=== PATIENT | male | born 1970 | race African-American/Black ===

== ENCOUNTER 2016-10-03 13:37 | Inpatient (IN) | payer SELFPAY ==
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
[2016-10-03 14:09] LABS: ABSOLUTE BASOPHILS # (AUTO) 0.1 10^3/uL (0.0-0.2); ABSOLUTE EOSINOPHILS # (AUTO) 0.1 10^3/uL (0.0-0.6); ABSOLUTE LYMPHOCYTES (AUTO) 2.1 10^3/uL (0.5-4.7); ABSOLUTE MONOCYTES (AUTO) 1.1 10^3/uL (0.1-1.4); ABSOLUTE NEUT (AUTO) 13.4 10^3/uL (1.7-8.2); BASOPHILS % (AUTO) 0.7 % (0-2); EOSINOPHILS % (AUTO) 0.5 % (0-6); HEMATOCRIT 41.8 % (37.9-51.0); HEMOGLOBIN 14.5 g/dL (13.5-17.0); HGB HCT DIFFERENCE 1.7; LYMPHOCYTES % (AUTO) 12.4 % (13-45); MEAN CORPUSCULAR HEMOGLOBIN 30.9 pg (27.0-33.4); MEAN CORPUSCULAR HGB CONC 34.8 g/dL (32.0-36.0); MEAN CORPUSCULAR VOLUME 89 fl (80-97); MONOCYTES % (AUTO) 6.8 % (3-13); RED BLOOD COUNT 4.71 10^6/uL (4.35-5.55); RED CELL DISTRIBUTION WIDTH 12.6 % (11.5-14.0); SEGMENTED NEUTROPHILS % (AUTO) 79.6 % (42-78); WHITE BLOOD COUNT 16.8 10^3/uL (4.0-10.5)
[2016-10-03 14:15] LABS: APPEARANCE,URINE CLEAR; BILIRUBIN,URINE NEGATIVE (NEGATIVE); GLUCOSE, URINE NEGATIVE (NEGATIVE); KETONES,URINE NEGATIVE (NEGATIVE); LEUKOCYTE ESTERASE,URINE NEGATIVE (NEGATIVE); NITRITE,URINE NEGATIVE (NEGATIVE); PROTEIN,URINE 30 mg/dL (NEGATIVE); URINE SPECIFIC GRAVITY 1.014
[2016-10-03 14:26] LABS: ALANINE AMINOTRANSFERASE 29 U/L (21-72); ALBUMIN 4.2 g/dL (3.5-5.0); ALKALINE PHOSPHATASE 61 U/L (38-126); ANION GAP 12 (5-19); ASPARTATE AMINO TRANSFERASE 20 U/L (17-59); BILIRUBIN,DIRECT 0.1 mg/dL (0.0-0.4); BILIRUBIN,TOTAL 1.4 mg/dL (0.2-1.3); BLOOD UREA NITROGEN 10 mg/dL (7-20); CALCIUM 9.6 mg/dL (8.4-10.2); CARBON DIOXIDE 30 mmol/L (22-30); CHLORIDE 100 mmol/L (98-107); CREATININE RESULT 1.11 mg/dL (0.52-1.25); GLUCOSE 128 mg/dL (75-110); LIPASE 65.6 U/L (23-300); POTASSIUM 3.7 mmol/L (3.6-5.0); SODIUM 141.5 mmol/L (137-145); TOTAL PROTEIN 7.3 g/dL (6.3-8.2)
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
[2016-10-03] MEDS ORDERED: LEVOFLOXACIN RTU 750 MG/D5W 150 ML IV ONE (15:40)
[2016-10-03] MEDS ORDERED: METRONIDAZOLE RTU 500 MG/NS 100 ML IV ONE (15:40)
[2016-10-03] MEDS ORDERED: NORMAL SALINE 1000 ML 1,000 ML IV ONE (15:42)
[2016-10-03] MEDS ORDERED: HYDROMORPHONE HCL INJ/PF 2 MG/ML AMPULE IV ONE (15:43)
[2016-10-03] MEDS ORDERED: ONDANSETRON HCL INJ/PF 4 MG/2 ML SDV IV ONE (15:43)
[2016-10-03] MEDS ORDERED: PIPERACILLIN/TAZOBACTAM 4.5 GM VIAL IV ONE (19:26)
[2016-10-03] MEDS ORDERED: POTASSI CL 20 MEQ/D5-1/2NS 1L 1,000 ML IV ONE (22:33)
[2016-10-03] MEDS ORDERED: ONDANSETRON HCL INJ/PF 4 MG/2 ML SDV IV PRN (22:41)
[2016-10-03] MEDS ORDERED: PIPERACILLIN/TAZOBACTAM 3.375 GM VIAL IV PRN (22:45)
[2016-10-03] MEDS: HYDROMORPHONE HCL INJ/PF 2 MG/ML AMPULE IV PRN (22:57)
[2016-10-03] MEDS: POTASSI CL 20 MEQ/D5-1/2NS 1L 1000 ML IV PRN (22:58)
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
[2016-10-04] MEDS ORDERED: PIPERACILLIN/TAZOBACTAM 3.375 GM VIAL IV ONE (02:36)
[2016-10-04] MEDS: PIPERACILLIN SODIUM/TAZOBACTAM 3.375 GM in NORMAL SALINE 100 ML IV SCH ×3 (04:27→18:35)
[2016-10-04 05:11] LABS: ABSOLUTE BASOPHILS # (AUTO) 0.1 10^3/uL (0.0-0.2); ABSOLUTE EOSINOPHILS # (AUTO) 0.2 10^3/uL (0.0-0.6); ABSOLUTE LYMPHOCYTES (AUTO) 2.1 10^3/uL (0.5-4.7); ABSOLUTE MONOCYTES (AUTO) 1.2 10^3/uL (0.1-1.4); ABSOLUTE NEUT (AUTO) 10.3 10^3/uL (1.7-8.2); BASOPHILS % (AUTO) 0.5 % (0-2); EOSINOPHILS % (AUTO) 1.3 % (0-6); HEMATOCRIT 37.5 % (37.9-51.0); HEMOGLOBIN 12.8 g/dL (13.5-17.0); HGB HCT DIFFERENCE 0.9; LYMPHOCYTES % (AUTO) 15.1 % (13-45); MEAN CORPUSCULAR HEMOGLOBIN 30.2 pg (27.0-33.4); MEAN CORPUSCULAR HGB CONC 34.1 g/dL (32.0-36.0); MEAN CORPUSCULAR VOLUME 89 fl (80-97); MONOCYTES % (AUTO) 8.7 % (3-13); RED BLOOD COUNT 4.22 10^6/uL (4.35-5.55); RED CELL DISTRIBUTION WIDTH 12.4 % (11.5-14.0); SEGMENTED NEUTROPHILS % (AUTO) 74.4 % (42-78); WHITE BLOOD COUNT 13.9 10^3/uL (4.0-10.5)
[2016-10-04 05:40] LABS: ANION GAP 9 (5-19); BLOOD UREA NITROGEN 9 mg/dL (7-20); CALCIUM 8.7 mg/dL (8.4-10.2); CARBON DIOXIDE 25 mmol/L (22-30); CHLORIDE 103 mmol/L (98-107); CREATININE RESULT 0.97 mg/dL (0.52-1.25); GLUCOSE 105 mg/dL (75-110); POTASSIUM 3.6 mmol/L (3.6-5.0); SODIUM 137.1 mmol/L (137-145)
--- NOTE | 2016-10-04 06:36 | PDOC PROGRESS REPORT ---
Subjective Progress Note for:: 10/04/16 Subjective:: Feeling better less abdominal pain Physical Exam Vital Signs: Temp Pulse Resp BP Pulse Ox 98.1 F 73 18 117/69 95 10/04/16 02:50 10/04/16 02:50 10/04/16 02:50 10/04/16 02:50 10/04/16 02:50 Intake & Output 10/02/16 10/03/16 10/04/16 06:59 06:59 06:59 Intake Total 920 Balance 920 GI/Abdominal exam: PRESENT: other - Soft abdomen, less tender Results Laboratory Results: 10/04/16 05:00 10/04/16 05:00 10/04/16 10/04/16 05:00 05:00 WBC 13.9 H RBC 4.22 L Hgb 12.8 L Hct 37.5 L MCV 89 MCH 30.2 MCHC 34.1 RDW 12.4 Plt Count 209 Seg Neutrophils % 74.4 Lymphocytes % 15.1 Monocytes % 8.7 Eosinophils % 1.3 Basophils % 0.5 Absolute Neutrophils 10.3 H Absolute Lymphocytes 2.1 Absolute Monocytes 1.2 Absolute Eosinophils 0.2 Absolute Basophils 0.1 Sodium 137.1 Potassium 3.6 Chloride 103 Carbon Dioxide 25 Anion Gap 9 BUN 9 Creatinine 0.97 Est GFR ( Amer) > 60 Est GFR (Non-Af Amer) > 60 Glucose 105 Calcium 8.7 Impressions: Abdomen/Pelvis CT 10/03/16 15:42 IMPRESSION: Sigmoid diverticulitis with the appearance of extra luminal gas, consistent with small perforation. Assessment & Plan - Plan Summary Plan Summary: Conservative management with IV Zosyn Clinically improving well Continue IV antibiotics another 2 days, slowly Advance diet
[2016-10-04] MEDS: ENOXAPARIN SODIUM INJ 40 MG/0.4 ML DISP.SYRIN SUBCUT SCH (10:12)
[2016-10-04] MEDS: POTASSI CL 20 MEQ/D5-1/2NS 1L 1000 ML IV PRN (10:14)
[2016-10-04] MEDS: HYDROMORPHONE HCL INJ/PF 2 MG/ML AMPULE IV PRN ×3 (10:16→22:13)
--- NOTE | 2016-10-04 22:13 | PROGRESS NOTE E ---
Progress Note NAME: ALEKSANDRA CHUNG : 1970 AGE: 46Y DATE: 10/04/2016 ROOM: 209 SUBJECTIVE: Patient still reports left lower quadrant pain and has multiple bouts of watery stools. OBJECTIVE: VITALS SIGNS: Stable. Patient afebrile. Temperature is 97.5, pulse 68, blood pressure 110/74. I's and O's for the past 24 hours; intake 920, output not reported. LUNGS: Clear. HEART: Regular. ABDOMEN: Slight tenderness left lower quadrant. REVIEW OF LABS: White blood cell count 13.9, H and H 12 and 37. Electrolytes: Current within normal limits. ASSESSMENT: 1. ACUTE PERFORATED SIGMOID DIVERTICULITIS, TREATED CONSERVATIVELY. 2. PATIENT OVERALL DOING WELL, AFEBRILE WITHOUT TACHYCARDIA. 3. WHITE BLOOD CELL COUNT DECREASED SINCE YESTERDAY. 4. PATIENT STILL HAS LEFT LOWER QUADRANT ON PHYSICAL EXAM. PLAN: 1. Continue N.P.O. 2. Continue IV fluids and IV antibiotics. 3. Will monitor the patient's vital signs and blood work the next few days. 4. Once the white blood cell count becomes normal and the patient is asymptomatic, will plan to rescan the patient and eventually advance his diet if CT scan is negative for abscess formation. DICTATING PHYSICIAN: OLGA LIDIA GUILLORY M.D. [id number] [facility]#: [id number] ID: [id number] JOB#: [id number] ACCT: [id number] cc: > ERICD
[2016-10-05] MEDS: POTASSI CL 20 MEQ/D5-1/2NS 1L 1000 ML IV PRN ×2 (00:14→11:40)
[2016-10-05] MEDS: PIPERACILLIN SODIUM/TAZOBACTAM 3.375 GM in NORMAL SALINE 100 ML IV SCH ×3 (02:02→17:32)
[2016-10-05] MEDS: HYDROMORPHONE HCL INJ/PF 2 MG/ML AMPULE IV PRN ×3 (04:47→17:37)
[2016-10-05 07:22] LABS: ABSOLUTE BASOPHILS # (AUTO) 0.1 10^3/uL (0.0-0.2); ABSOLUTE EOSINOPHILS # (AUTO) 0.3 10^3/uL (0.0-0.6); ABSOLUTE LYMPHOCYTES (AUTO) 2.2 10^3/uL (0.5-4.7); ABSOLUTE MONOCYTES (AUTO) 0.8 10^3/uL (0.1-1.4); ABSOLUTE NEUT (AUTO) 6.7 10^3/uL (1.7-8.2); BASOPHILS % (AUTO) 0.6 % (0-2); EOSINOPHILS % (AUTO) 2.9 % (0-6); HEMATOCRIT 38.6 % (37.9-51.0); HEMOGLOBIN 13.2 g/dL (13.5-17.0); MEAN CORPUSCULAR HEMOGLOBIN 30.2 pg (27.0-33.4); MEAN CORPUSCULAR HGB CONC 34.1 g/dL (32.0-36.0); MEAN CORPUSCULAR VOLUME 89 fl (80-97); MONOCYTES % (AUTO) 8.2 % (3-13); RED BLOOD COUNT 4.36 10^6/uL (4.35-5.55); RED CELL DISTRIBUTION WIDTH 12.8 % (11.5-14.0); SEGMENTED NEUTROPHILS % (AUTO) 66.3 % (42-78)
[2016-10-05 07:39] LABS: ANION GAP 11 (5-19); BLOOD UREA NITROGEN 7 mg/dL (7-20); CARBON DIOXIDE 23 mmol/L (22-30); CHLORIDE 105 mmol/L (98-107); CREATININE RESULT 0.95 mg/dL (0.52-1.25); GLUCOSE 103 mg/dL (75-110); POTASSIUM 4.2 mmol/L (3.6-5.0); SODIUM 138.9 mmol/L (137-145)
[2016-10-05] MEDS: ENOXAPARIN SODIUM INJ 40 MG/0.4 ML DISP.SYRIN SUBCUT SCH (09:10)
--- NOTE | 2016-10-05 19:08 | PROGRESS NOTE E ---
Progress Note NAME: ALEKSANDRA CHUNG : 1970 AGE: 46Y DATE: 10/05/2016 ROOM: 209 SUBJECTIVE: The patient feels better today. OBJECTIVE: Vital signs are stable. The patient is currently afebrile. Vital signs within normal limits. Blood work: White blood cell count 10, hemoglobin 13 and hematocrit 38, platelet count 257. Electrolytes, BUN and creatinine were within normal limits. ABDOMEN: Soft, nontender. ASSESSMENT: 1. MUCH IMPROVED DIVERTICULITIS/PAIN. 2. THE PATIENT HEMODYNAMICALLY STABLE AND AFEBRILE. 3. WHITE BLOOD CELL COUNT NORMAL. 4. PHYSICAL EXAM SHOWS MUCH IMPROVEMENT OF THE LEFT LOWER QUADRANT PAIN. PLAN: Advance diet to clear liquids tonight and clear liquids tomorrow morning. If the blood work remains normal, the patient's diet can be advanced tomorrow to low-residue diet and discharge her home tomorrow as well. DICTATING PHYSICIAN: OLGA LIDIA GUILLORY M.D. [id number] PHY#: [id number] ID: [id number] JOB#: [id number] ACCT: [id number] cc: >
[2016-10-05] MEDS: NORMAL SALINE 1000 ML 1,000 ML IV PRN (20:31)
[2016-10-05] MEDS ORDERED: NICOTINE 21 MG/24 HR PATCH.TD24 TD SCH (22:00)
[2016-10-06] MEDS: PIPERACILLIN SODIUM/TAZOBACTAM 3.375 GM in NORMAL SALINE 100 ML IV SCH ×2 (02:28→10:43)
[2016-10-06] MEDS: HYDROMORPHONE HCL INJ/PF 2 MG/ML AMPULE IV PRN (06:37)
[2016-10-06 07:09] LABS: ABSOLUTE BASOPHILS # (AUTO) 0.1 10^3/uL (0.0-0.2); ABSOLUTE EOSINOPHILS # (AUTO) 0.2 10^3/uL (0.0-0.6); ABSOLUTE LYMPHOCYTES (AUTO) 2.1 10^3/uL (0.5-4.7); ABSOLUTE MONOCYTES (AUTO) 0.9 10^3/uL (0.1-1.4); ABSOLUTE NEUT (AUTO) 7.9 10^3/uL (1.7-8.2); HEMATOCRIT 41.7 % (37.9-51.0); HEMOGLOBIN 13.7 g/dL (13.5-17.0); HGB HCT DIFFERENCE -0.6; LYMPHOCYTES % (AUTO) 18.5 % (13-45); MEAN CORPUSCULAR HEMOGLOBIN 29.1 pg (27.0-33.4); MEAN CORPUSCULAR HGB CONC 32.9 g/dL (32.0-36.0); MEAN CORPUSCULAR VOLUME 89 fl (80-97); MONOCYTES % (AUTO) 8.2 % (3-13); RED BLOOD COUNT 4.71 10^6/uL (4.35-5.55); RED CELL DISTRIBUTION WIDTH 12.5 % (11.5-14.0); SEGMENTED NEUTROPHILS % (AUTO) 70.3 % (42-78); WHITE BLOOD COUNT 11.3 10^3/uL (4.0-10.5)
[2016-10-06 07:29] LABS: ANION GAP 11 (5-19); BLOOD UREA NITROGEN 6 mg/dL (7-20); CALCIUM 9.5 mg/dL (8.4-10.2); CARBON DIOXIDE 22 mmol/L (22-30); CHLORIDE 107 mmol/L (98-107); CREATININE RESULT 0.99 mg/dL (0.52-1.25); GLUCOSE 87 mg/dL (75-110); POTASSIUM 4.1 mmol/L (3.6-5.0)
[2016-10-06] MEDS: ENOXAPARIN SODIUM INJ 40 MG/0.4 ML DISP.SYRIN SUBCUT SCH (09:07)
[2016-10-06] MEDS: NORMAL SALINE 1000 ML 1,000 ML IV PRN (09:09)
[2016-10-06] MEDS ORDERED: NICOTINE 21 MG/24 HR PATCH.TD24 TD SCH (10:00)
--- NOTE | 2016-10-06 12:28 | PROGRESS NOTE E ---
Progress Note NAME: ALEKSANDRA CHUNG : 1970 AGE: 46Y DATE: 10/06/2016 ROOM: 209 SUBJECTIVE: The patient has no complaints. Tolerated pureed p.o. well. Vital signs remain stable. Patient has no temperature. Vital signs are within normal limits. I's and O's: Patient had 2 bowel movements yesterday with soft stools. count 308. Electrolytes, BUN and creatinine are within normal limits. PHYSICAL EXAMINATION: LUNGS: Clear to auscultation bilaterally. HEART: Regular rhythm and rate. ABDOMEN: Soft, nondistended, nontender. ASSESSMENT: 1. Resolved acute diverticulitis of the sigmoid colon with microperforation, treated conservatively. 2. Physical exam unremarkable. 3. Patient afebrile. 4. Patient denies any abdominal pain. 5. Blood work shows just slight elevation of white blood cell count 11. 6. Diet tolerated. PLAN: 1. Advance the diet to low-residue diet for lunch. 2. Low-residue diet. 3. Patient will be discharged to home on low-residue diet for about 3 weeks. 4. Patient is to be discharged home on oral antibiotics. 5. Follow up in the Surgery Clinic in 1 week. DICTATING PHYSICIAN: OLGA LIDIA GUILLORY M.D. [id number] PHY#: [id number] ID: [id number] JOB#: [id number] ACCT: [id number] cc: > MTDD
[2016-10-06 13:06] VITALS: BP 106/79
--- NOTE | 2016-10-07 01:18 | DISCHARGE SUMMARY E ---
Discharge Summary NAME: ALEKSANDRA CHUNG : 1970 AGE: 46Y ADMITTED: 10/03/2016 DISCHARGED: 10/06/2016 FINAL DIAGNOSIS: Sigmoid diverticulitis with microperforation. PROCEDURE: None. COMPLICATION: None. HOSPITAL COURSE: A 46-year-old -[place] male admitted for left lower quadrant abdominal pain and found to have a sigmoid diverticulitis with microperforation. The patient was admitted and treated conservatively, kept n.p.o. on IV fluids and IV antibiotics. His general condition progressively improved. On the day of discharge, the patient had no complaints, tolerating p.o. well. He had no complaints of abdominal discomfort and was passing stool, soft without blood. His vital signs were stable. No temperature was identified. His blood work showed a white blood cell count of 11 with electrolytes, BUN and creatinine within normal limits. His physical exam was within the normal limit. The lungs were clear bilaterally. Heart, regular rhythm and rate. The abdomen is soft, nondistended, nontender. The patient was discharged home on October 06. He was given Levaquin 500 mg p.o. daily for 10 days and Flagyl 500 mg p.o. t.i.d. for 10 days. He was given Tylenol only for pain and instructed to have a low residue diet for about 3 weeks and to followup with the Surgery Clinic within 1 week. DICTATING PHYSICIAN: OLGA LIDIA GUILLORY M.D. [id number] PHY#: [id number] ID: [id number] JOB#: [id number] ACCT: [id number] cc:Iron LARSON M.D. >
== END 2016-10-06 14:41 | disposition home or self-care (01) | DRG 392 ==
LOC: ER 13:37 → EH 20:23 → 2N 22:00
PROVIDERS: ADMIT Colon & Rectal Surgery; ATTEND Colon & Rectal Surgery
DX: K57.20 Diverticulitis of large intestine with perforation and abscess without bleeding (principal); I10 Essential (primary) hypertension; F17.200 Nicotine dependence, unspecified, uncomplicated; Z91.013 Allergy to seafood
CPT/HCPCS: 36415; 74177; 80048; 80053; 81001; 83690; 85025; 96365; 96366; 96367; 96368; 96375; 99285; J1170; J1650; J1956; J2405; J2543; J3480; J7030

== ENCOUNTER 2017-12-10 15:16 | Inpatient (IN) | payer SELFPAY ==
[2017-12-10] MEDS ORDERED: ACETAMINOPHEN 325 MG TABLET PO ONE (15:57)
[2017-12-10] MEDS ORDERED: DOXYCYCLINE HYCLATE 100 MG TABLET PO ONE (16:02)
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
[2017-12-10 16:28] LABS: APPEARANCE,URINE CLEAR; BILIRUBIN,URINE NEGATIVE (NEGATIVE); COLOR,URINE YELLOW; GLUCOSE, URINE NEGATIVE (NEGATIVE); KETONES,URINE TRACE mg/dL (NEGATIVE); LEUKOCYTE ESTERASE,URINE NEGATIVE (NEGATIVE); NITRITE,URINE NEGATIVE (NEGATIVE); PROTEIN,URINE 30 mg/dL (NEGATIVE); URINE SPECIFIC GRAVITY 1.025
[2017-12-10 16:47] LABS: ABSOLUTE BASOPHILS # (AUTO) 0.1 10^3/uL (0.0-0.2); ABSOLUTE LYMPHOCYTES (AUTO) 0.9 10^3/uL (0.5-4.7); ABSOLUTE NEUT (AUTO) 12.6 10^3/uL (1.7-8.2); BASOPHILS % (AUTO) 0.4 % (0-2); HEMATOCRIT 44.3 % (37.9-51.0); HEMOGLOBIN 15.2 g/dL (13.5-17.0); LYMPHOCYTES % (AUTO) 5.9 % (13-45); MEAN CORPUSCULAR HEMOGLOBIN 30.3 pg (27.0-33.4); MEAN CORPUSCULAR HGB CONC 34.2 g/dL (32.0-36.0); MEAN CORPUSCULAR VOLUME 89 fl (80-97); PLATELET COUNT 264 10^3/uL (150-450); RED CELL DISTRIBUTION WIDTH 13.3 % (11.5-14.0); SEGMENTED NEUTROPHILS % (AUTO) 86.7 % (42-78); TOTAL CELLS COUNTED % (AUTO) 100 %; WHITE BLOOD COUNT 14.5 10^3/uL (4.0-10.5)
[2017-12-10 16:53] LABS: VENOUS BLOOD BASE EXCESS 1.2 mmol/L; VENOUS BLOOD HCO3 24.7 mmol/L (20-32); VENOUS BLOOD PCO2 35.8 mmHg (35-63); VENOUS BLOOD PH 7.46 (7.30-7.42)
[2017-12-10 17:06] LABS: ALANINE AMINOTRANSFERASE 68 U/L (21-72); ALBUMIN 4.3 g/dL (3.5-5.0); ALKALINE PHOSPHATASE 70 U/L (38-126); ANION GAP 13 (5-19); ASPARTATE AMINO TRANSFERASE 68 U/L (17-59); BILIRUBIN,DIRECT 0.4 mg/dL (0.0-0.4); BILIRUBIN,TOTAL 0.8 mg/dL (0.2-1.3); BLOOD UREA NITROGEN 10 mg/dL (7-20); CALCIUM 9.5 mg/dL (8.4-10.2); CARBON DIOXIDE 25 mmol/L (22-30); CHLORIDE 101 mmol/L (98-107); GLUCOSE 98 mg/dL (75-110); POTASSIUM 3.5 mmol/L (3.6-5.0); SODIUM 139.2 mmol/L (137-145); TOTAL PROTEIN 7.7 g/dL (6.3-8.2)
--- NOTE | 2017-12-10 17:22 | RADIOLOGY REPORT (SQ) ---
EXAM DESCRIPTION: CHEST 2 VIEWS COMPLETED DATE/TIME: 12/10/2017 4:52 pm REASON FOR STUDY: fever COMPARISON: None. EXAM PARAMETERS: NUMBER OF VIEWS: two views TECHNIQUE: Digital Frontal and Lateral radiographic views of the chest acquired. RADIATION DOSE: NA LIMITATIONS: none FINDINGS: LUNGS AND PLEURA: No opacities, masses or pneumothorax. No pleural effusion. MEDIASTINUM AND HILAR STRUCTURES: No masses or contour abnormalities. HEART AND VASCULAR STRUCTURES: Heart normal size. No evidence for failure. BONES: No acute findings. HARDWARE: None in the chest. OTHER: No other significant finding. IMPRESSION: NO ACUTE RADIOGRAPHIC FINDING IN THE CHEST. TECHNICAL DOCUMENTATION: JOB ID: [id number] [employer]- All Rights Reserved Reading location - IP/workstation name: [email or web address]
--- NOTE | 2017-12-10 17:29 | RADIOLOGY REPORT (SQ) ---
EXAM DESCRIPTION: LUMBAR PUNCTURE COMPLETED DATE/TIME: 12/10/2017 4:26 pm REASON FOR STUDY: under fluroscopy fever tick bite COMPARISON: None. FLUOROSCOPY TIME: 14 SECONDS 3 digital radiographic images saved to PACS. TECHNIQUE: Fluoroscopic guided lumbar puncture. LIMITATIONS: None. PROCEDURE: After written consent and assessment were obtained, the patient was brought into the fluo roscopy room and placed prone on the table. The patient's lower back was prepped in a sterile fashio n and an entry site was selected under live fluoroscopic guidance. The entry site was anesthetized wi th 3 mL of 1% lidocaine. A 20 gauge needle was advanced through the skin and into the thecal sac at t he left paracentral L4-5 level. After approximately 4.5 ml was drained, the needle was removed and a sterile bandage was placed of the site. Specimens were sent to the lab for testing. A fluoroscopic spot image was saved to PACS confirming level access. No immediate complications post procedure. P atient instructed to remain on bedrest for 2 hours post procedure FINDINGS: Clear CSF, opening pressure 13 cm of water IMPRESSION: Lumbar puncture under fluoroscopy. No immediate complication. CSF lab tests are pendin g COMMENT: Patient medication list reviewed: Yes- Quality ID# [id number]:Eligible professional attests to doc umenting in the medical record they obtained, updated, or reviewed the patient's current medications. . Quality ID [id number]: Final reports for procedures using fluoroscopy that document radiation exposure ten crista, or exposure time and number of fluorographic images (if radiation exposure indices are not avail able) TECHNICAL DOCUMENTATION: JOB ID: [id number] [employer]- All Rights Reserved Reading location - IP/workstation name: [email or web address]
[2017-12-10] MEDS: NORMAL SALINE 1000 ML 1,000 ML IV PRN ×2 (17:47→17:53)
[2017-12-10] MEDS ORDERED: ACETAMINOPHEN 325 MG TABLET PO PRN (17:59)
[2017-12-10] MEDS ORDERED: ALBUTEROL SULFATE 0.083% NEB 2.5 MG/3 ML AMPUL NEB PRN (17:59)
[2017-12-10] MEDS ORDERED: ONDANSETRON 4 MG TAB.RAPDIS PO PRN (17:59)
[2017-12-10] MEDS ORDERED: POTASSI CL 20 MEQ/NS 1L 1,000 ML IV PRN (17:59)
[2017-12-10] MEDS ORDERED: ONDANSETRON HCL INJ/PF 4 MG/2 ML SDV IV PRN (17:59)
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
[2017-12-10] MEDS ORDERED: VANCOMYCIN HCL 0 MG in DEXTROSE 5%-WATER 250 ML IV NR (18:15)
[2017-12-10 18:49] LABS: GLUCOSE,CSF 65 mg/dL (40-70); PROTEIN,CSF 46 mg/dL (12-60)
[2017-12-10 18:59] LABS: APPEARANCE ALL TUBES CLEAR; COLOR ALL TUBES COLORLESS; CSF TUBE NUMBER 1
[2017-12-10 19:00] LABS: RED BLOOD CELL,CSF 49 /uL (0-10); WHITE BLOOD CELL,CSF 4 /uL (0-5)
[2017-12-10] MEDS ORDERED: CEFTRIAXONE 2 GM/D5W RTU 2 GM/50 ML RTUPB IV ONE ×2 (19:00→21:30)
[2017-12-10 19:01] LABS: APPEARANCE ALL TUBES CLEAR; COLOR ALL TUBES COLORLESS; CSF TUBE NUMBER 3
[2017-12-10 19:02] LABS: RED BLOOD CELL,CSF 5 /uL (0-10); WHITE BLOOD CELL,CSF 2 /uL (0-5)
[2017-12-10] MEDS: DOXYCYCLINE HYCLATE 100 MG in DEXTROSE 5%-WATER 250 ML IV SCH (21:25)
[2017-12-10] MEDS: LACTOBACILLUS ACIDOPHILUS 250 MG TAB PO SCH (21:39)
[2017-12-10] MEDS ORDERED: VANCOMYCIN HCL 1,500 MG in DEXTROSE 5%-WATER 250 ML IV SCH (22:00)
[2017-12-10] MEDS: OXYCODONE-ACETAMINOPHEN 5-325 MG TABLET PO PRN (23:07)
[2017-12-11 00:51] LABS: URINE AMPHETAMINES SCREEN NEGATIVE; URINE BARBITURATES SCREEN NEGATIVE; URINE BENZODIAZEPINES SCREEN NEGATIVE; URINE METHADONE SCREEN NEGATIVE; URINE PHENCYCLIDINE SCREEN NEGATIVE
[2017-12-11 03:00] LABS: URINE COCAINE SCREEN UNCONFIRMED POSITIVE; URINE MARIJUANA (THC) SCREEN UNCONFIRMED POSITIVE
[2017-12-11] MEDS: OXYCODONE-ACETAMINOPHEN 5-325 MG TABLET PO PRN (05:48)
[2017-12-11] MEDS ORDERED: CEFTRIAXONE 2 GM/D5W RTU 2 GM/50 ML RTUPB IV SCH (06:00)
[2017-12-11 06:13] LABS: HEMATOCRIT 39.1 % (37.9-51.0); HEMOGLOBIN 13.6 g/dL (13.5-17.0); MEAN CORPUSCULAR HEMOGLOBIN 30.7 pg (27.0-33.4); MEAN CORPUSCULAR HGB CONC 34.8 g/dL (32.0-36.0); MEAN CORPUSCULAR VOLUME 88 fl (80-97); PLATELET COUNT 196 10^3/uL (150-450); RED BLOOD COUNT 4.43 10^6/uL (4.35-5.55); RED CELL DISTRIBUTION WIDTH 13.1 % (11.5-14.0); WHITE BLOOD COUNT 10.9 10^3/uL (4.0-10.5)
[2017-12-11 06:34] LABS: PHOSPHORUS 2.6 mg/dL (2.5-4.5)
[2017-12-11 06:46] LABS: ABSOLUTE LYMPHOCYTES# (MANUAL) 1.1 10^3/uL (0.5-4.7); ABSOLUTE MONOCYTES # (MANUAL) 1.2 10^3/uL (0.1-1.4); ABSOLUTE NEUTROPHILS# (MANUAL) 8.6 10^3/uL (1.7-8.2); BAND NEUTROPHILS % (MANUAL) 3 % (3-5); BASOPHILS % (MANUAL) 0 % (0-2); EOSINOPHILS % (MANUAL) 0 % (0-6); LYMPHOCYTES % (MANUAL) 10 % (13-45); MONOCYTES % (MANUAL) 11 % (3-13); SEGMENTED NEUTROPHILS % (MAN) 76 % (42-78); TOTAL CELLS COUNTED 100
[2017-12-11 06:47] LABS: PLATELET COMMENT ADEQUATE; TOXIC GRANULATION SLIGHT
[2017-12-11 06:50] LABS: FREE T4 (FREE THYROXINE) 1.06 ng/dL (0.78-2.19)
[2017-12-11 07:04] LABS: THYROID STIMULATING HORMONE 1.49 uIU/mL (0.47-4.68)
[2017-12-11] MEDS: DOXYCYCLINE HYCLATE 100 MG in DEXTROSE 5%-WATER 250 ML IV SCH (08:04)
[2017-12-11] MEDS: LACTOBACILLUS ACIDOPHILUS 250 MG TAB PO SCH (09:10)
[2017-12-11] MEDS ORDERED: DOCUSATE SODIUM 100 MG CAPSULE PO SCH (10:00)
[2017-12-11 13:16] VITALS: BP 120/88
--- NOTE | 2017-12-11 13:22 | PDOC DISCHARGE SUMMARY ---
General - Admit/Disc Date/PCP Admission Date/Primary Care Provider: 12/10/17 17:[address] To [address] care [address] Felipe Discharge Date: 12/11/17 - Discharge Diagnosis (1) Fever and chills Is this a current diagnosis for this admission?: Yes (2) Headache Is this a current diagnosis for this admission?: Yes (3) Tick bite of back Is this a current diagnosis for this admission?: Yes - Additional Information Resuscitation Status: Full Code Discharge Diet: As Tolerated Discharge Activity: Activity As Tolerated Prescriptions: Ondansetron [Zofran Odt 4 mg Tablet] 4 mg PO Q4HP PRN 5 Days #20 tab.rapdis PRN Reason: Oxycodone HCl/Acetaminophen [Percocet 5-325 mg Tablet] 1 tab PO Q4HP PRN 3 Days #15 tablet PRN Reason: For Headache Doxycycline Hyclate [Vibramycin 100 mg Tablet] 100 mg PO Q12 21 Days #42 tablet Lactobacillus Acidophilus [Bacid 250 mg Tablet] 500 mg PO DAILY 21 Days #21 tab Home Medications: Acetaminophen [Tylenol 325 mg Tablet] 650 mg PO Q4HP PRN tablet 12/11/17 Doxycycline Hyclate [Vibramycin 100 mg Tablet] 100 mg PO Q12 21 Days #42 tablet 12/11/17 Lactobacillus Acidophilus [Bacid 250 mg Tablet] 500 mg PO DAILY 21 Days #21 tab 12/11/17 Ondansetron [Zofran Odt 4 mg Tablet] 4 mg PO Q4HP PRN 5 Days #20 tab.rapdis 08/29 Oxycodone HCl/Acetaminophen [Percocet 5-325 mg Tablet] 1 tab PO Q4HP PRN 3 Days #15 tablet 12/11/17 History of Present Illness History of Present Illness: 47 year old male with past medical history of acute diverticulitis with microperforations managed conservatively. He presented to the ER complaining of abrupt onset high grade fevers, chills and uncontrollable shaking that started yesterday. This morning he developed persistently worsening leg pain and headache. He denies rhonorrhea/cough/sore throat/dysuria/vomiting/abdominal pain or visual disturbances. 2 weeks ago he noticed a tick on his torso with a white blessing on it and had some itching at the site. Denies rash or joint swelling or confusion. LP was performed- CSF was clear, colorless qith 2 WBC per hpf, negative Gram stain. He was started on IV fluids and Doxycycline was ordered. UA unremarkable. Chest X-ray normal. His headache has improved. urine tox screen positive for Cocaine and marijuana. Ehrlichiosis PCR and Ricketssia Antibody and Lyme western blot pending- to be followed as outpatient Hospital Course Hospital Course: He was treated with IV fluids and antibiotics and transitioned to a 3 week course of PO Doxycycline. Percocet 5/325 prn- script given for 15 tablets. Stable for discharge home Physical Exam Vital Signs: Temp Pulse Resp BP Pulse Ox 98.8 F 87 16 131/82 H 97 12/11/17 11:47 12/11/17 12:00 12/11/17 12:00 12/11/17 11:47 12/11/17 12:00 Intake & Output 12/10/17 12/11/17 12/12/17 06:59 06:59 06:59 Intake Total 4199 Output Total 350 Balance 3849 Weight 91.1 kg General appearance: PRESENT: no acute distress Neurological exam: PRESENT: alert, awake, oriented to time, other - No neck rigidity or photophobia Results Laboratory Results: 12/11/17 05:51 12/11/17 12/11/17 12/11/17 05:51 05:51 05:51 WBC 10.9 H RBC 4.43 Hgb 13.6 Hct 39.1 MCV 88 MCH 30.7 MCHC 34.8 RDW 13.1 Plt Count 196 Seg Neutrophils % Not Reportable Lymphocytes % Not Reportable Monocytes % Not Reportable Eosinophils % Not Reportable Basophils % Not Reportable Absolute Neutrophils Not Reportable Absolute Lymphocytes Not Reportable Absolute Monocytes Not Reportable Absolute Eosinophils Not Reportable Absolute Basophils Not Reportable Phosphorus 2.6 Magnesium 1.9 TSH 1.49 Free T4 1.06 Impressions: Chest X-Ray 12/10/17 16:02 IMPRESSION: NO ACUTE RADIOGRAPHIC FINDING IN THE CHEST. Lumbar Puncture 12/10/17 16:25 IMPRESSION: Lumbar puncture under fluoroscopy. No immediate complication. CSF lab tests are pending Qualifiers - * PATIENT BEING DISCHARGED WITH ANY OF THE FOLLOWING DIAGNOSIS: No Plan Time Spent: Greater than 30 Minutes
[2017-12-11] MEDS ORDERED: DOXYCYCLINE HYCLATE 100 MG TABLET PO SCH (18:00)
[2017-12-13 19:17] LABS: LYME DISEASE IGM AB <0.80 index (0.00-0.79)
[2017-12-15 07:06] LABS: ROCKY MTN SPOTTED FEV IGG IFA <1:64 (Neg <1:64)
[2017-12-15 07:07] LABS: ROCKY MTN SPOTTED FEV IGG EIA Equivocal (Negative)
[2017-12-15 15:56] LABS: A. PHAGOCYTOPHILUM PCR Negative (Negative); E. CHAFFEENSIS PCR Negative (Negative)
== END 2017-12-11 14:00 | disposition home or self-care (01) | DRG 864 ==
LOC: ER 15:16 → EH 17:20 → 3S 18:46
PROVIDERS: ADMIT Internal Medicine; ATTEND Internal Medicine
PROC: 009U3ZX Drainage of Spinal Canal, Percutaneous Approach, Diagnostic (ICD-10-PCS; principal; 2017-12-10)
DX: R50.9 Fever, unspecified (principal); R51 Headache; S30.860A Insect bite (nonvenomous) of lower back and pelvis, initial encounter; F14.90 Cocaine use, unspecified, uncomplicated; F12.90 Cannabis use, unspecified, uncomplicated; F17.210 Nicotine dependence, cigarettes, uncomplicated
CPT/HCPCS: 36415; 62270; 71046; 80053; 80307; 81001; 82803; 82945; 83605; 83735; 84100; 84157; 84439; 84443; 85025; 86617; 86618; 86757; 87040; 87070; 87205; 87798; 89050; 96360; 99285; 99406; J0696; J3370; J3480; J3490; J7030; J7060

== ENCOUNTER 2020-05-27 21:28 | Emergency (ER) | payer OTHER ==
[2020-05-27] MEDS ORDERED: IBUPROFEN 800 MG TABLET PO ONE (21:55)
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
[2020-05-27] MEDS ORDERED: IBUPROFEN 800 MG TABLET ONE (23:57)
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
[2020-05-28 02:00] VITALS: BP 146/72
== END 2020-05-28 01:56 | disposition home or self-care (01) ==
LOC: ER 21:28
DX: S39.012A Strain of muscle, fascia and tendon of lower back, initial encounter (principal); S16.1XXA Strain of muscle, fascia and tendon at neck level, initial encounter; V43.12XA Car passenger injured in collision with other type car in nontraffic accident, initial encounter; F17.200 Nicotine dependence, unspecified, uncomplicated; Z91.013 Allergy to seafood
CPT/HCPCS: 72050; 72070; 72110; 99283